=== PATIENT | male | born 1990 | race Caucasian/White ===

== ENCOUNTER 2018-09-02 10:20 | Emergency (ER) | payer BC, OTHER ==
[~2018-09-02] VITALS: Ht 188 cm; Wt 111.1 kg
[2018-09-02 10:42] VITALS: BP 141/96
[2018-09-02 10:54] LABS: CREATININE 0.9 mg/dL (0.7-1.3); POTASSIUM 3.9 mmol/L (3.5-5.1)
[2018-09-02 10:55] LABS: HEMATOCRIT 46.8 % (42.0-52.0); HEMOGLOBIN 16.2 gm/dL (14.0-18.0); MCH 30.5 pg (26.0-34.0); MCHC 34.6 g/dL (28.0-37.0); MCV 88.1 fL (80.0-100.0); RBC 5.32 mil/uL (4.50-6.00); RDW 13.1 % (10.5-14.5); WBC 8.3 thou/uL (4.0-11.0)
[2018-09-02] MEDS ORDERED: ZPAK PO (11:26)
[2018-09-02] MEDS ORDERED: MOBIC7.5 MG PO (11:26)
--- NOTE | 2018-09-02 12:44 | EKG ---
[address] [address] ELECTROCARDIOGRAM REPORT Name: GRACIE CUMMINS Room #: DEP [facility]ENTERCh[facility] [id number] Admission: 09/02/18 Attend Phys: Discharge: 09/02/18 Date of : [birth year] Report #: [id number] THIS REPORT FOR: //name// [facility] ED Test Date: 2018-09-02 Test Time: 10:28:43 Pat Name: GRACIE CUMMINS Department: Room: Gender: M Kick [employer]er: TASH : 1990 Requested By: Farhad Obando Order Number: [id number] MD: Paco Prado Measurements Intervals [place] Rate: 97 P: 26 MA: 139 QRS: 59 QRSD: 90 T: 3 QT: 329 QTc: 418 Interpretive Statements Sinus rhythm No previous ECG available for comparison Electronically Signed On 09-02-2018 12:44:30 [employer] by Paco Prado [email or web address] <ELECTRONICALLY SIGNED> By: Paco Prado MD 09/02/18 1244 1028 1028 Paco Prado MD /CRISTINA
== END 2018-09-02 11:34 | disposition home or self-care (01) ==
LOC: ER 10:20
PROVIDERS: Physician Assistant
DX: J18.9 Pneumonia, unspecified organism (principal); R09.1 Pleurisy